=== PATIENT | male | born 1950 | race Caucasian/White ===

== ENCOUNTER 2019-02-27 10:01 | Outpatient (CLI) | payer OTHER ==
[~2019-02-27 10:01] MED LIST: ATENOLOL-CHLORT1 TA2; FENOFIBRATE48 MG; LOTREL 5/40 MG1 CAP; METFORMIN HCL850 MG; ZOCOR20 MG
== END 2019-02-27 13:18 | disposition home or self-care (01) ==
LOC: SONOGRAMA 10:01
DX: E04.2 Nontoxic multinodular goiter (principal)

== ENCOUNTER 2023-10-06 11:30 | Emergency (ER) | payer OTHER ==
[~2023-10-06] VITALS: Ht 180.3 cm; Wt 108.9 kg
[2023-10-06 14:12] LABS: HEMOGLOBIN 13.9 g/dL (13-16.00); MEAN CELL VOLUME 83.4 fL (80.0-100.00); MEAN CORPUSCULAR HEMOGLOBIN 29.1 pg (27.00-32.0); MEAN CORPUSCULAR HGB CONC 34.8 g/dl (32.0-36.0); PLATELET COUNT 139 K/uL (150-450)
[2023-10-06 14:42] LABS: INR 1.04; PARTIAL THROMBOPLASTIN TIME 30.6 SECONDS (22.0-34.0); PROTHROMBIN TIME 10.9 SECONDS (9.0-11.5)
[2023-10-06 14:54] LABS: BILIRUBIN TOTAL 0.84 mg/dL (0.3-1.2); CALCIUM 9.2 mg/dL (8.5-10.1); CREATININE SERUM 0.93 mg/dL (0.70-1.30); GFR 80.09; GLOBULINA 3.3 G/DL (2.4-3.5); POTASSIUM 3.95 mEq/L (3.5-5.1); TOTAL PROTEIN 7.3 gm/dL (6.4-8.2)
== END 2023-10-06 19:10 | disposition home or self-care (01) ==
LOC: ER 11:31
PROVIDERS: Emergency Medicine
DX: R60.0 Localized edema (principal); E11.9 Type 2 diabetes mellitus without complications; Z79.84 Long term (current) use of oral hypoglycemic drugs; I10 Essential (primary) hypertension